=== PATIENT | female | born 1950 | race Caucasian/White ===

== ENCOUNTER → 2016-05-07 | Outpatient (CLI) | payer MEDICARE ==
--- NOTE | 2016-05-07 16:28 | CR ---
EXAMINATION: Right shoulder HISTORY: Fracture COMPARISON: 03/26/2016 TECHNIQUE: 2 views FINDINGS/IMPRESSION: There is a healing proximal right humerus fracture identified stable in positio n and alignment. 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 The visualized osseous str uctures appear mildly osteopenic.
== END ==
LOC: MW.CHORTHO 07:54
PROVIDERS: ATTEND Orthopaedic Surgery
DX: S42.201D Unspecified fracture of upper end of right humerus, subsequent encounter for fracture with routine healing (principal); M19.011 Primary osteoarthritis, right shoulder; M85.821 Other specified disorders of bone density and structure, right upper arm
CPT/HCPCS: 73030; G0463

== ENCOUNTER 2024-02-19 08:19 | Emergency (ER) | payer MEDICARE ==
[2024-02-19 08:40] VITALS: BP 124/73; PULSE 75
[2024-02-19] MEDS ORDERED: Sodium Chloride 0.9% 2.5 ML Syringe FLUSH PRN (08:55)
[2024-02-19] MEDS: fentaNYL 50 MCG/ML SDV IVPUSH ONE ×2 (09:09→10:11)
[2024-02-19] MEDS: Sodium Chloride 0.9% 10 ML Syringe FLUSH PRN (09:09)
[2024-02-19] MEDS: Ondansetron 4 MG/2 ML SDV IVPUSH ONE (09:09)
[2024-02-19 09:40] LABS: BASOPHILS ABSOLUTE AUTO 0.13 K/uL (0.00-0.20); BASOPHILS PERCENT AUTO 1.1 % (0.0-1.0); EOSINOPHILS ABSOLUTE AUTO 0.69 K/uL (0.00-0.45); EOSINOPHILS PERCENT AUTO 6.1 % (0.0-6.0); HEMATOCRIT 43.3 % (37.0-47.0); HEMOGLOBIN 15.1 g/dL (12.0-16.0); IMMATURE GRAN ABSOLUTE AUTO 0.05 K/uL (0.00-0.05); IMMATURE GRAN PERCENT AUTO 0.4 % (0.0-0.4); LYMPHOCYTES ABSOLUTE AUTO 1.14 K/uL (1.00-4.80); MEAN CORPUSCULAR HEMOGLOBIN 29.4 pg (28.0-32.0); MEAN CORPUSCULAR HGB CONC 34.9 g/dL (32.0-36.0); MEAN CORPUSCULAR VOLUME 84.4 fL (83.0-99.0); MONOCYTES ABSOLUTE AUTO 0.72 K/uL (0.00-0.80); MONOCYTES PERCENT AUTO 6.3 % (0.0-8.0); NEUTROPHILS ABSOLUTE AUTO 8.63 K/uL (1.80-7.70); NEUTROPHILS PERCENT AUTO 76.1 % (41.0-71.0); PLATELET COUNT,PLT 377 K/uL (150-400); RED BLOOD CELL COUNT 5.13 M/uL (4.10-5.30); WHITE BLOOD CELL COUNT,WBC 11.36 K/uL (3.9-11.3)
[2024-02-19 09:54] LABS: INR 1.07 (0.86-1.11)
[2024-02-19 10:01] LABS: A/G RATIO 1.3 (0.9-1.6); BILIRUBIN TOTAL 0.6 mg/dL (0.2-1.0); CALCIUM 9.6 mg/dL (8.5-10.1); CARBON DIOXIDE,CO2 24.9 mmol/L (21.0-32.0); CREATININE 0.9 mg/dL (0.6-1.0); EST CRCL DRUG DOSING (CG) 37.79 mL/min; POTASSIUM,K 4.4 mmol/L (3.5-5.1); PROTEIN TOTAL,TP 7.1 g/dL (6.4-8.2)
[2024-02-19] MEDS: HYDROmorphone 0.5 MG/0.5 ML Syringe IVPUSH ONE (13:40)
== END 2024-02-19 13:59 ==
LOC: MW.ED 08:19 → EDBD 08:19 → MERGE 08:19 → MW.ED 13:59
DX: S72.141A Displaced intertrochanteric fracture of right femur, initial encounter for closed fracture (principal); Z75.8 Other problems related to medical facilities and other health care; W01.0XXA Fall on same level from slipping, tripping and stumbling without subsequent striking against object, initial encounter
CPT/HCPCS: 36415; 71045; 73502; 80053; 85025; 85610; 93005; 96374; 96375; 96376; 99285; J1171; J2405; J3010; 93010